=== PATIENT | female | born 1995 | race Caucasian/White ===

== ENCOUNTER 2016-06-23 16:38 | Emergency (ER) | payer OTHER ==
[~2016-06-23] VITALS: Ht 162.6 cm; Wt 80.7 kg
[2016-06-23 16:38] VITALS: BP 129/75
[~2016-06-23 16:38] MED LIST: PRENATAL VITAMI1 T10 PO
--- NOTE | 2016-06-23 19:25 | NUR ---
PT. AMBULATED TO ER BED 6
--- NOTE | 2016-06-23 19:32 | NUR ---
21Y/F PATIENT PRESENTS TO ED WITH C/O DIZZINESS X1 DAY . PT STATES HAVING HEADCAHE DIZZINESS AND BODY PAIN. PT.A1 IUP 25 WKS. DENIES N/V/D; SKIN IS PINK/WARM/DRY; AAOX4 WITH EVEN AND STEADY GAIT; LUNGS CLEAR BL; HR EVEN AND REGULAR; PT DENIES ANY FEVER, CP, SOB, OR COUGH AT THIS TIME; PATIENT STATES PAIN OF 4/10 AT THIS TIME; VSS; PATIENT POSITIONED FOR COMFORT; HOB ELEVATED; BEDRAILS UP X2; BED DOWN. ER MD MADE AWARE OF PT STATUS.
--- NOTE | 2016-06-23 19:35 | NUR ---
Patient being evaluated by at bedside.
[2016-06-23] MEDS ORDERED: ACETAMINOPHEN EXTRA STRENGTH 500 MG TAB PO ONE (19:50)
--- NOTE | 2016-06-23 20:42 | NUR ---
TAKE PATIENT TO US
--- NOTE | 2016-06-23 21:10 | NUR ---
PATIENT BACK FROM
[2016-06-23 22:04] VITALS: BP 129/75
--- NOTE | 2016-06-23 22:05 | NUR ---
Patient discharged with v/s stable. Written and verbal after care instructions given and explained. Patient alert, oriented and verbalized understanding of instructions. Ambulatory with steady gait. All questions addressed prior to discharge. ID band removed. Patient advised to follow up with PMD. Rx of TYLENOL 500 MG given. Patient educated on indication of medication including possible reaction and side effects. Opportunity to ask questions provided and answered.
== END 2016-06-23 22:05 | disposition home or self-care (01) ==
LOC: MED 16:38
DX: O26.892 Other specified pregnancy related conditions, second trimester (principal); R51 Headache; M54.5 Low back pain; Z3A.25 25 weeks gestation of pregnancy

== ENCOUNTER 2018-12-19 15:16 | Emergency (ER) | payer OTHER ==
[~2018-12-19] VITALS: Ht 165.1 cm; Wt 90.3 kg
[2018-12-19 15:20] VITALS: BP 127/80
--- NOTE | 2018-12-19 15:40 | NUR ---
PT PRESENTS TO ED WITH C/O INTERMITTENT, NON-RADIATING LOW ABD PAIN X 1 WEEK AGO. REPORTS NAUSEA; DENIES VOMITING, DIARRHEA OR FEVER; AFEBRILE AT THIS TIME. PT STATES PAIN IS 7/10 AT THIS TIME; DESCRIBES PAIN PRESSURE AND CRAMPING. VSS.
--- NOTE | 2018-12-19 16:59 | NUR ---
Patient appears to be resting comfortably in bed. Vital Signs within normal limits. Respirations even and unlabored.
[2018-12-19 17:10] VITALS: BP 138/76
--- NOTE | 2018-12-19 17:10 | NUR ---
Patient discharged with v/s stable. Written and verbal after care instructions given and explained. Patient alert, oriented and verbalized understanding of instructions. Ambulatory with steady gait. All questions addressed prior to discharge. ID band removed. Patient advised to follow up with PMD. Rx of MIRALAX, MINERAL OIL given. Patient educated on indication of medication including possible reaction and side effects. Opportunity to ask questions provided and answered.
== END 2018-12-19 17:10 | disposition home or self-care (01) ==
LOC: MED 15:16
DX: R10.30 Lower abdominal pain, unspecified (principal); R11.0 Nausea
CPT/HCPCS: 74022; 81002; 81025; 99283

== ENCOUNTER 2019-06-28 04:38 | Emergency (ER) | payer OTHER ==
[~2019-06-28] VITALS: Ht 167.6 cm; Wt 77.1 kg
[2019-06-28 04:40] VITALS: BP 122/73
--- NOTE | 2019-06-28 04:40 | NUR ---
TO BED # 07 AMBULATORY
[2019-06-28] MEDS ORDERED: LIDOCAINE/EPI 1% 1:100000 20 ML VIAL INJ ONE ×3 (04:58→06:30)
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
--- NOTE | 2019-06-28 05:22 | NUR ---
MARTIN KWAW AT BEDSIDE FOR PROCEDURE. LIDOCAINE AT BEDSIDE FOR ERMD KWAW FOR BEDSIDE PROCEDURE.
[2019-06-28] MEDS ORDERED: BACITRACIN OINT 500 UNITS/GM PKT TP ONE (06:05)
[2019-06-28 06:36] VITALS: BP 122/73
--- NOTE | 2019-06-28 06:36 | NUR ---
Patient discharged with v/s stable. Written and verbal after care instructions given and explained. Patient verbalized understanding. Ambulatory with steady gait. All questions addressed prior to discharge. Advised to follow up with PMD.
== END 2019-06-28 06:36 | disposition home or self-care (01) ==
LOC: MED 04:38
DX: S01.402A Unspecified open wound of left cheek and temporomandibular area, initial encounter (principal); S31.109A Unspecified open wound of abdominal wall, unspecified quadrant without penetration into peritoneal cavity, initial encounter; X99.8XXA Assault by other sharp object, initial encounter; Y93.89 Activity, other specified; Y92.89 Other specified places as the place of occurrence of the external cause; Y99.8 Other external cause status
CPT/HCPCS: 12002; 12013; 90471; 90715; 99284; J2001